=== PATIENT | female | born 1965 | race Caucasian/White ===

== ENCOUNTER 2018-10-27 13:54 | Inpatient (IN) ==
[2018-10-27 15:03] LABS: BASO# 0.03 X1000 (0.0-0.2); BASO% 0.3 % (0.0-0.8); EOS# 0.06 X1000 (0.0-0.7); EOS% 0.7 % (0.0-10.0); HEMATOCRIT 44.2 % (37.0-47.0); HEMOGLOBIN 14.9 g/dL (12.0-16.0); IMM GRAN# 0.03 X1000 (0.0-0.04); IMM GRAN% 0.3 % (0.0-0.5); LYMPH# 2.12 X1000 (1.2-3.4); LYMPH% 23.8 % (20.5-51.1); MCH 30.5 PG (27-31); MCHC 33.7 g/dL (33-37); MCV 90.4 FL (81-99); MONO% 4.5 % (1.7-9.3); MPV 11.3 FL (7.4-10.4); NEUT# 6.26 X1000 (1.4-6.5); NEUT% 70.4 % (42.2-75.2); PLT 282 X1000 (130-400); RBC 4.89 XMIL (4.2-5.4); RDW 12.1 % (11.5-14.5)
[2018-10-27 15:08] LABS: INR 0.96; PROTIME 13.5 Seconds (11.0-16.0)
[2018-10-27 15:09] LABS: PTT 30.3 Seconds (22.3-41.8)
--- NOTE | 2018-10-27 15:17 | Diag Imaging Result Doc PS360 ---
EXAM: MRI C-SPINE W/WO CONTRAST 10/27/2018 HISTORY: paraparesis, neck pain, incontinence TECHNIQUE: T1-T2 and STIR sagittal, T1 and T2 axial, post gadolinium T1-weighted axial and sagittal fat sat. COMMENT: There is motion artifact. There is no definite evidence of an intramedullary mass or signal abnormality. Some flow artifacts are demonstrated in the CSF on the STIR images. No evidence of abnormal gadolinium enhancement is present. At the C1-2 level there is no spinal or foraminal stenosis. At C2-3 there is no evidence of spinal or foraminal stenosis. At C3-4 there is no spinal or foraminal stenosis. At C4-5 there is no evidence of spinal or foraminal stenosis. At C5-6 there is posterior osteophyte formation with mild spinal stenosis and left-sided foraminal narrowing. At C6-7 there is some osteophyte formation which is most appreciable on the right side narrowing the lateral recess. The foramina appear to be patent bilaterally. At C7-T1 there is no evidence of spinal or foraminal stenosis. IMPRESSION: Degenerative disc disease at C5-6 with spinal and left foraminal stenosis. Electronically signed by Barry Collins 10/27/2018 3:15 PM
[2018-10-27 15:25] LABS: AGAP 13; ALB/GLOB RATIO 1.3; ALKALINE PHOSPHATASE 66 U/L (32-104); BUN 10 mg/dL (8-22); CALCIUM 9.7 mg/dL (8.8-10.2); CHLORIDE 103 mmol/L (98-107); COSMO 278; CREATININE 0.5 mg/dL (0.5-0.9); ESTIMATED GFR > 60; GLUCOSE 88 mg/dL (70-104); GOT 11 U/L (10-30); GPT 7 U/L (10-36); POTASSIUM 3.9 mmol/L (3.5-5.1); SODIUM 140 mmol/L (136-145); TCO2 24 mmol/L (25-35); TOTAL BILIRUBIN 0.33 mg/dL (0.20-1.00); TOTAL PROTEIN 7.1 g/dL (6.3-8.3)
[2018-10-27 16:07] LABS: SED RATE 23 mm/hr (0-20)
--- NOTE | 2018-10-27 16:50 | Diag Imaging Result Doc PS360 ---
EXAM: MRI THORACIC SPINE W/CONTRAST 10/27/2018 HISTORY: paraparesis, incontinence TECHNIQUE: T1, T2, STIR sagittal, axial T1 and T2. COMMENT: As contrast was administered for the previously performed study of the cervical spine, there is some gadolinium present on this study. There is no evidence of intramedullary mass or intrathecal mass. There is a small syrinx present at the upper level of T7 but not on subsequent or prior axial slices. There is increased signal intensity on both the T1 and T2 weighted images and T4 which is presumably due to a hemangioma. Otherwise there is no significant signal abnormality in the thoracic spine. There is no evidence of spinal stenosis. There is no evidence of abnormal enhancement. IMPRESSION: Questionable minimal syrinx as described. Otherwise no evidence of acute disease. Electronically signed by Barry Collins 10/27/2018 4:48 PM
--- NOTE | 2018-10-27 16:53 | Diag Imaging Result Doc PS360 ---
EXAM: MRI LUMBAR SPINE W/CONTRAST 10/27/2018 HISTORY: paraparesis, incontinence TECHNIQUE: T1-T2 and STIR sagittal, T1 and T2 axial COMMENT: There is a well-circumscribed lesion in L3 demonstrate increased signal intensity on both T1 and T2-weighted images which presumably is a hemangioma. There is no evidence of spinal stenosis or intrathecal mass. There is no evidence of bone marrow edema. At the T12-L1 level, there is no evidence of spinal or foraminal stenosis. There is a cyst in the left kidney. At the L1-2 level there is no spinal or foraminal stenosis. At the L2-3 level there is no spinal or foraminal stenosis. At the L3-4 level there is no spinal or foraminal stenosis. There is some hypertrophic change in the ligamenta flava bilaterally. At the L4-5 level there is disc space narrowing desiccation and some Modic type II change in the adjoining endplates. There is disc bulge. There is no evidence of spinal or foraminal stenosis. At the L5-S1 level there is no evidence of significant spinal or foraminal stenosis. IMPRESSION: Degenerative disc disease at L4-5. Electronically signed by Barry Collins 10/27/2018 4:50 PM
--- NOTE | 2018-10-27 18:43 | PROVIDER DOCUMENTATION ---
This chart was entered by Julee Emery Scribe, acting as scribe for Stiven Klein MD. HPI-General Adult - General Chief Complaint: Numbness Stated Complaint: NUMBNESS Time Seen by Provider: 10/27/18 14:05 Source: patient, family Unable to obtain history due to:: other (pt is poor historian) Allergies/Adverse Reactions: Patient Allergies Allergy/AdvReac Type Severity Reaction Status Date / Time No Known Allergies Allergy Verified 09/07/18 22:15 Home Medications: Home Medication List Medication Instructions Recorded Confirmed Last Taken Type Levothyroxine [Synthroid] 25 microgm PO DAILY 12/14/14 10/27/18 10/24/18 History Doxepin HCl 75 mg PO QHS 12/15/14 10/27/18 10/24/18 History Ergocalciferol (Vitamin D2) 50,000 unit PO Q7D 12/15/14 10/27/18 10/24/18 History [Vitamin D] Escitalopram Oxalate [Lexapro] 20 mg PO DAILY 12/15/14 10/27/18 10/24/18 History Hydrocodone/Acetaminophen [Lortab 1 each PO Q6H PRN PRN #12 tablet 01/13/1502/0910/24/18 Rx 10-325 mg Tablet] Omeprazole 20 mg PO DAILY #0 capsule. 01/13/15 10/27/18 10/24/18 Rx - History of Present Illness -Gen Adult Nature of Presenting Problems: 53 yof presents to the ed with c/o numbness from neck down and has been incontinent of urine and bm. has been cleaning and doing care of pt since onset. acute onset 2 weeks prior Location of Pain/Injury: reports: generalized (from neck down) Quality of Pain: reports: other (numbness) Severity: reports: severe Onset/Duration: reports: other (2 weeks) Timing: reports: still present, constant Context/Activities at Onset: reports: light activity Modifying Factors: improves with: nothing Associated Symptoms: reports: genitourinary problems, trouble walking, other ( numbness from neck down). denies: back/neck pain, chest pain, diarrhea, fever/ chills, headaches, weakness Similar Symptoms Previously?: No Recently seen or treated by another doctor?: No Review of Systems - Adult - REVIEW OF SYSTEMS - ADULT ROS:: limited per condition Constitutional: reports: no symptoms reported Eyes: reports: no symptoms reported Ears, Nose, Mouth & Throat: reports: no symptoms reported Cardiovascular: denies: chest pain, palpitations Respiratory: denies: cough, shortness of breath, wheezing Gastrointestinal: denies: abdominal pain, diarrhea, nausea, vomiting Genitourinary: reports: no symptoms reported Musculoskeletal: denies: back pain, neck pain Integumentary: reports: no symptoms reported Neurological: reports: see HPI, numbness. denies: dizziness/vertigo, headache/ migraines, seizure, slurred speech, tremors Psychiatric: reports: no symptoms reported Endocrine: reports: no symptoms reported Hematologic/Lymphatic: reports: no symptoms reported Allergic/Immunologic: reports: no symptoms reported All Other Systems: Reviewed and Negative Past History - Adult - PAST MEDICAL HISTORY-ADULT Review of Records: reports: Old Records Reviewed, Nursing Assessment Review, Medications Reviewed, Social history reviewed & non-contributory. Major Childhood Illnesses: reports: denies history Cardiovascular: reports: HTN Respiratory: reports: denies history Gastrointestinal: reports: denies history Obstetrical/Gynecological: reports: denies history Genitourinary: reports: denies history Musculoskeletal: reports: denies history Neurological: reports: denies history Psychiatric: reports: depression Endocrine/Immune: reports: denies history Other Conditions: reports: denies history - PRIOR SURGERIES/PROCEDURES Surgical/Procedure History: reports: back/neck (sx) - IMMUNIZATION STATUS Childhood Immunizations: See Nurse Assessment Flu Vaccine: See Nurse Assessment - FAMILY HISTORY Family History: reviewed, not pertinent - SOCIAL HISTORY Smoking: cigarettes, greater than 1 pack/day Provider spent 3-5 mins advising pt. on dangers of tobacco.: Discussed manners to quit use, and f/u contacts for add'l counseling. Substance Use: denies Alcohol Use Frequency: never Living Situation: family Physical Exam-General - PHYSICAL EXAM-ADULT Initial Vital Signs Reviewed: Yes - CONSTITUTIONAL General Appearance: alert, no apparent distress - EYES Eyes: PERRL/EOMI, pink conjunctivae - HEAD, EARS, NOSE, MOUTH & THROAT HENMT: moist mucous membranes, normal ENT inspection - NECK Neck: full range of motion, normal inspection - RESPIRATORY Respiratory: chest non-tender, lungs clear, normal breath sounds - CARDIOVASCULAR Cardiovascular: normal peripheral pulses, regular rate, rhythm - GASTROINTESTINAL (ABDOMEN) Abdominal Exam: normal bowel sounds, non tender, soft - GENITOURINARY Female Genitalia/Pelvic Exam: deferred Rectal Exam: decreased tone - LYMPHATIC Lymphatic: no adenopathy - MUSCULOSKELETAL Back Exam: normal inspection Extremity: normal inspection, normal capillary refill, pelvis stable, other ( upward toes). negative: normal range of motion Progress - PLAN OF CARE/RESULTS Progress/Plan/Lab Results: Vital Signs - 8 hr 10/27/18 14:00 Temperature 99.4 F Pulse Rate 84 Respiratory Rate 16 Blood Pressure 150/90 O2 Sat by Pulse Oximetry 98 Orders Category Date Time Status MRI CERVICAL SPINE W/CONTRAST [MRI] Stat Exams 10/27/18 14:25 Ordered CBC WITH DIFF [HEME] Stat Lab 10/27/18 14:24 Uncollected COMPREHENSIVE METABOLIC PANEL [CHEM] Stat Lab 10/27/18 14:24 Uncollected PROTIME WITH INR [COAG] Stat Lab 10/27/18 14:24 Uncollected PTT [COAG] Stat Lab 10/27/18 14:24 Uncollected SED RATE [HEME] Stat Lab 10/27/18 14:25 Uncollected imaging of Cspine w/ josette. as well as subsequent T & L spine fails to reveal anatomic/mechanical explanation for paresis. labs wnl. have discussed w/ Nae who agreed to admit to Hospitalist for further neuro eval; possibility of depression w/ conversion reaction considered based on hx of depression and recent stressors (mother very ill). Result Diagrams: 10/27/18 14:30 10/27/18 14:30 - REASSESSMENT Reassessment #1 Time Reassessed: 14:31 ( at bedside) Status: unchanged Reassessment #2 Time Reassessed: 17:14 Status: unchanged Reassessment Comment: resting in bed - CT/MRI 1 MRI Study: C-Spine (EXAM: MRI C-SPINE W/WO CONTRAST 10/27/2018 HISTORY: paraparesis, neck pain, incontinence TECHNIQUE: T1-T2 and STIR sagittal, T1 and T2 axial, post gadolinium T1-weighted axial and sagittal fat sat. COMMENT : There is motion artifact. There is no definite evidence of an intramedullary mass or signal abnormality. Some flow artifacts are demonstrated in the CSF on the STIR images. No evidence of abnormal gadolinium enhancement is present. At the C1-2 level there is no spinal or foraminal stenosis. At C2-3 there is no evidence of spinal or foraminal stenosis. At C3-4 there is no spinal or foraminal stenosis. At C4-5 there is no evidence of spinal or foraminal stenosis. At C5-6 there is posterior osteophyte formation with mild spinal stenosis and left-sided foraminal narrowing. At C6-7 there is some osteophyte formation which is most appreciable on the right side narrowing the lateral recess. The foramina appear to be patent bilaterally. At C7-T1 there is no evidence of spinal or foraminal stenosis. IMPRESSION: Degenerative disc disease at C5-6 with spinal and left foraminal stenosis. Electronically signed by Barry Collins 10/27/2018 3:15 PM 10/27/18 1515 Interpreting Physician: Barry Collins MD Dictated Date/Time: 10/27/18 4281 cc: Stiven Klein MD; Poppy Deluna), Lumbar Spine (EXAM: MRI LUMBAR SPINE W/ CONTRAST 10/27/2018 HISTORY: paraparesis, incontinence TECHNIQUE: T1-T2 and STIR sagittal, T1 and T2 axial COMMENT: There is a well-circumscribed lesion in L3 demonstrate increased signal intensity on both T1 and T2-weighted images which presumably is a hemangioma. There is no evidence of spinal stenosis or intrathecal mass. There is no evidence of bone marrow edema. At the T12-L1 level, there is no evidence of spinal or foraminal stenosis. There is a cyst in the left kidney. At the L1-2 level there is no spinal or foraminal stenosis. At the L2-3 level there is no spinal or foraminal stenosis. At the L3-4 level there is no spinal or foraminal stenosis. There is some hypertrophic change in the ligamenta flava bilaterally. At the L4-5 level there is disc space narrowing desiccation and some Modic type II change in the adjoining endplates. There is disc bulge. There is no evidence of spinal or foraminal stenosis. At the L5-S1 level there is no evidence of significant spinal or foraminal stenosis. IMPRESSION: Degenerative disc disease at L4-5. Electronically signed by Barry Collins 10/27/2018 4:50 PM 10/27/18 4360 Interpreting Physician: Barry Collins MD Dictated Date/Time: 1648 cc: Stiven Klein MD; Poppy Deluna), Thoracic Spine ( EXAM: MRI THORACIC SPINE W/CONTRAST 10/27/2018 HISTORY: paraparesis, incontinence TECHNIQUE: T1, T2, STIR sagittal, axial T1 and T2. COMMENT: As contrast was administered for the previously performed study of the cervical spine, there is some gadolinium present on this study. There is no evidence of intramedullary mass or intrathecal mass. There is a small syrinx present at the upper level of T7 but not on subsequent or prior axial slices. There is increased signal intensity on both the T1 and T2 weighted images and T4 which is presumably due to a hemangioma. Otherwise there is no significant signal abnormality in the thoracic spine. There is no evidence of spinal stenosis. There is no evidence of abnormal enhancement. IMPRESSION: Questionable minimal syrinx as described. Otherwise no evidence of acute disease. Electronically signed by Barry Collins 10/27/2018 4:48 PM 10/27/188 Interpreting Physician: Barry Collins MD Dictated Date/Time: 10/27/18 1643 cc: Stiven Klein MD; Poppy Deluna) Departure - Departure Date of Disposition Decision: 10/27/18 Time of Disposition Decision: 18:42 DIAGNOSIS: Paraparesis Disposition: ADMITTED INPATIENT 09 Certified Medical Emergency: Emergent Condition: Serious Referrals and Follow-Ups: Poppy Deluna [Primary Care Provider] - - Critical Care Note This patient required my direct & personal management of CC.: Yes Total Time (mins): 38 Critical Care Statement: This patient required my direct personal management to treat or rule out processes, the absence of which, could potentiallly result in sudden, clinically significant life or limb threatening deterioration. Attestation - Physician/ PEDRO Attestation Patient care was provided by Advanced Practice Provider:: No The physician spent face to face time with patient:: Yes Advanced Practice Provider documentation review:: Supervising physician onsite and consulted in the evaluation and care of this patient. The physician did have a face to face encounter with the patient. This chart was documented by the indicated scribe, (Julee Emery Scribe) and accurately reflects the services I performed and decisions made by me, Stiven Klein MD, as attested by the provider's signature.
--- NOTE | 2018-10-27 19:35 | Diag Imaging Result Doc PS360 ---
EXAM: CT HEAD W/O CONTRAST 10/27/2018 HISTORY: weakness TECHNIQUE: This exam was performed using automated exposure control, adjustment of mA or kV according to patient size, and/or use of iterative reconstruction technique. COMMENT: There is no evidence of mass effect, bleed, or abnormal extra-axial fluid collection. There are no previous studies available for comparison. The calvarium is intact. The visualized paranasal sinuses are clear. IMPRESSION: No evidence of acute intracranial disease. Electronically signed by Barry Collins 10/27/2018 7:33 PM
[2018-10-27] MEDS ORDERED: ZOFRAN IV PRN (20:15)
[2018-10-27] MEDS ORDERED: TYLENOL PO PRN (20:15)
[2018-10-27 20:54] LABS: URINE SOURCE CATH
[2018-10-27 21:08] LABS: BILIRUBIN URINE NEGATIVE (NEGATIVE); BLOOD URINE SMALL (NEGATIVE); COLOR ORANGE; GLUCOSE URINE NEGATIVE (NEGATIVE); KETONE URINE 10 mg/dL (NEGATIVE); LEUKOCYTES URINE LARGE (NEGATIVE); NITRITE URINE NEGATIVE (NEGATIVE); PROTEIN URINE TRACE mg/dL (NEGATIVE); SP GRAVITY URINE 1.016; TURBIDITY URINE HAZY (CLEAR); UROBILINOGEN URINE NORMAL (NORMAL)
[2018-10-27 21:10] LABS: UR EPITHELIAL CELLS <10 /HPF (<10); URINE BACTERIA 4+ /HPF; URINE RBC <10 /HPF (<10); URINE WBC TNTC /HPF (<10)
[2018-10-27 21:15] LABS: UR AMPHETAMINES QUAL NONE DETECTED (NONE DETECT); UR BARBITUATES QUAL NONE DETECTED (NONE DETECT); UR BENZODIAZEPIN QUAL NONE DETECTED (NONE DETECT); UR CANNABINOIDS QUAL PRESUMPTIVE POSITIVE (NONE DETECT); UR COCAINE QUAL NONE DETECTED (NONE DETECT); UR METHADONE QUAL NONE DETECTED (NONE DETECT); UR OPIATES QUAL NONE DETECTED (NONE DETECT); UR OXYCODONE QUAL NONE DETECTED (NONE DETECT); UR PCP QUAL NONE DETECTED (NONE DETECT)
--- NOTE | 2018-10-27 21:40 | HISTORY AND PHYSICAL ---
PRIMARY CARE PROVIDER: Dr. Poppy Deluna. CHIEF COMPLAINT: Numbness. HISTORY OF PRESENT ILLNESS: This is a 53-year-old female who presented to the emergency room. She is a very poor historian. She has a past medical history of chronic back and neck pain status post surgery, gastric ulcers, anxiety/depression, hypothyroidism and a large abscess on her posterior portion of her neck which was debrided by Dr. Emery. I believe it was found to be MRSA positive. At any rate, for the last 2 weeks, she has apparently had progressive numbness from the neck down. She has apparently been incontinent of urine and bowels, and her has been caring for her. From what I understand, she has been having a lot of stress at home. Her mother is very ill. Her [id number] . T patient had a CT of the head, lumbar spine MRI and thoracic spine MRI, which were all essentially negative and showed no reason for the paraparesis or incontinence. Laboratory data was completely normal. On my arrival to the room to examine the patient, she stated she was unable to move; however, she was able to move all of her extremities. She was able to sit up in the bed on command and follow all commands. She had no motor or focal deficits, and her deep tendon reflexes and sensory were intact. This appears to be some type of conversion disorder; however, will admit the patient on observation status to monitor overnight with neuro checks, and consult [facility] for tomorrow morning to evaluate the patient. PAST MEDICAL HISTORY: See HPI. PREVIOUS SURGICAL HISTORY: 1. Tubal ligation. 2. Abscess debridement. 3. Neck and back surgery. SOCIAL HISTORY: Smokes a pack a day. Has continued smoking a pack a day despite her present illness. No alcohol or illicit drugs. FAMILY HISTORY: Mother has hypertension and is in bad health. The patient was unable to tell me any other family member comorbidities. As I stated, she is a poor historian. ALLERGIES: No known drug allergies. HOME MEDICATIONS: 1. Doxepin 75 mg p.o. at bedtime. 2. Vitamin D2 50,000 units p.o. every 7 days. 3. Lexapro 10 mg p.o. daily. 4. Shepherd 10, 1 p.o. every 6 hours p.r.n. 5. Synthroid 25 mcg p.o. daily. 6. Omeprazole 20 mg p.o. daily. REVIEW OF SYSTEMS: A 14-point review of systems was conducted with the patient. Pertinent positives as listed above in the HPI. All other systems reviewed and found to be negative PHYSICAL EXAMINATION: VITAL SIGNS: Temperature 97.8, pulse 66, respirations 15, blood pressure 138/72 , oxygen saturation 97% on room air. GENERAL: A 53-year-old female lying on the ER stretcher, somewhat odd or flat affect. She is a poor historian but is alert and oriented x3. Answers all questions appropriately. HEENT: Head is atraumatic, normocephalic. Pupils equal, round, and reactive to light. Extraocular eye movements intact. Sclerae are anicteric. Conjunctivae are pink. Oral mucosa is moist. NECK: Supple. No JVD. No thyromegaly. Trachea is midline. No cervical lymphadenopathy. CARDIAC: S1 and S2 appreciated. No murmurs, gallops or rubs. LUNGS: Clear to auscultation bilaterally. No rhonchi, wheezes or rales. Symmetric rise and fall with respirations. ABDOMEN: Soft, nondistended, nontender. Bowel sounds in all 4 quadrants. Normoactive. No pulsatile mass or organomegaly. EXTREMITIES: No clubbing, cyanosis, or edema. Has 2+ pedal pulses bilaterally. GENITOURINARY: No bladder distention. Exam otherwise deferred. NEUROLOGIC: Alert and oriented x3. Cranial nerves II-XII grossly intact. Deep tendon reflexes are also noted to be intact. No palmar drift. No asymmetry MUSCULOSKELETAL: The patient does move all extremities, 4/5 strength in upper and lower extremities. No pain with movement of passive movement. The patient also states that she has sensation in all areas that are evaluated. DIAGNOSTIC DATA: CT of the head, MRI of the lumbar spine, and MRI of the T- spine are all grossly normal. LABORATORY DATA: CBC, chemistry, and coags within normal limits. Urine and UDS are pending. ASSESSMENT/PLAN: 1. Conversion disorder. This is the most likely diagnosis. The patient has been under a lot of stress at home. She does have a diagnosis of anxiety and depression. She essentially has no problems, but states that she feels numb inside despite being able to feel sensation from the outside. She does continue to state that she is incontinent of urine and stool. Will consult [facility] to evaluate the patient. Will check vitamin B12, vitamin D, and TSH levels. 2. Hypothyroidism. Continue home medication. Check TSH to make sure that her laboratory values are within normal limits. 3. Chronic neck and back pain. Continue Shepherd. 4. Anxiety and depression. Aware. See number 1. 5. History of gastric ulcers. Continue proton pump inhibitor. Further recommendation per patient's clinical course. Dictated by LIZZIE Patel for Chrystal Bryan MD cc: LIZZIE Patel MD Faye Wilson, MD I personally examined this patient. I strongly feel her symptoms do not match her complaints. When patient is distracted, her exam is totally normal. I do feel there is some psychological overlay in this case. It does not help that she has THC + UDS. Her urine is also suggestive for a UTI and will treated as such. Would benefit from psychiatric eval. once cleared. TAYLORD
[2018-10-27 21:44] LABS: VITAMIN D 25 HYDROXY 25.6 NG/DL
[2018-10-27] MEDS: SINEQUAN PO SCH (22:25)
[2018-10-27] MEDS: NORCO-10 PO PRN (22:25)
[2018-10-27] MEDS ORDERED: APRESOLINE IV PRN (23:54)
[2018-10-28] MEDS: PRILOSEC PO SCH (06:32)
[2018-10-28] MEDS: SYNTHROID PO SCH (06:32)
[2018-10-28] MEDS: ROCEPHIN 1 GM in NS 50 ML IV SCH (06:32)
[2018-10-28 07:57] LABS: BASO# 0.04 X1000 (0.0-0.2); BASO% 0.6 % (0.0-0.8); EOS# 0.18 X1000 (0.0-0.7); EOS% 2.5 % (0.0-10.0); HEMATOCRIT 43.6 % (37.0-47.0); HEMOGLOBIN 14.5 g/dL (12.0-16.0); LYMPH# 2.87 X1000 (1.2-3.4); MCH 30.6 PG (27-31); MCHC 33.3 g/dL (33-37); MONO# 0.51 X1000 (0.11-0.59); MONO% 7.1 % (1.7-9.3); NEUT# 3.57 X1000 (1.4-6.5); NEUT% 49.8 % (42.2-75.2); PLT 276 X1000 (130-400); RBC 4.74 XMIL (4.2-5.4); RDW 12.3 % (11.5-14.5); WBC 7.17 X1000 (4.8-10.8)
[2018-10-28 08:30] LABS: AGAP 12; BUN 13 mg/dL (8-22); CALCIUM 10.1 mg/dL (8.8-10.2); CHLORIDE 101 mmol/L (98-107); COSMO 281; CREATININE 0.7 mg/dL (0.5-0.9); ESTIMATED GFR > 60; GLUCOSE 93 mg/dL (70-104); MAGNESIUM 2.1 mg/dL (1.5-2.7); SODIUM 141 mmol/L (136-145); TCO2 28 mmol/L (25-35)
[2018-10-28] MEDS: LEXAPRO PO SCH (09:32)
[2018-10-28] MEDS: NORCO-10 PO PRN ×2 (09:43→16:04)
[2018-10-28] MEDS: NICODERM PATCH TD PRN (12:09)
[2018-10-28] MEDS: KLONOPIN PO PRN ×2 (12:09→20:04)
--- NOTE | 2018-10-28 13:59 | PROGRESS NOTE ---
DATE: 10/28/2018 SUBJECTIVE: Patient notes she still feels numb all over from approximately her mid neck area all the way down. States that she is still very weak, but she has no visible weakness in her upper extremities or lower extremities with movement. Does note that she has been under an intense amount of stress lately. OBJECTIVE: Temperature 98, pulse 61, respiratory 20, BP 157/84. General: Patient is awake, alert. She is currently in no respiratory distress. HEENT: Normocephalic. Neck: Supple. CARDIOVASCULAR: Regular rate. No murmurs. Chest clear and unlabored. Abdomen is soft, nondistended, nontender. Extremities: She moves all extremities well. She has no focal weakness appreciable. ASSESSMENT: 1. Acute stress reaction with conversion disorder. 2. Hypothyroidism. 3. Chronic neck and back pain. 4. Chronic anxiety/depression. PLAN: The patient currently is on Rocephin for a presumed urinary tract infection. We will continue that currently. Did discuss with Ms. Tubbs that this is most likely due to acute stress reaction. I certainly agree that she should have [facility] consulted. We will continue 3 days of antibiotics. One the cultures are negative, then we will consult [facility]. Her labs currently are negative. CT of the head, MRI of L-spine and C-spine also grossly normal. We will continue to follow. cc: Frandy Solares MD
[2018-10-28] MEDS: SINEQUAN PO SCH (20:04)
[2018-10-29] MEDS: PRILOSEC PO SCH (06:18)
[2018-10-29] MEDS: ROCEPHIN 1 GM in NS 50 ML IV SCH (06:18)
[2018-10-29] MEDS: SYNTHROID PO SCH (06:18)
[2018-10-29] MEDS: NORCO-10 PO PRN ×3 (06:59→19:08)
[2018-10-29] MEDS: LEXAPRO PO SCH (09:23)
[2018-10-29] MEDS: KLONOPIN PO PRN ×2 (09:29→19:08)
[2018-10-29] MEDS: NICODERM PATCH TD PRN (09:33)
[2018-10-29] MEDS: SINEQUAN PO SCH (20:00)
--- NOTE | 2018-10-29 20:50 | PROGRESS NOTE ---
DATE: 10/29/2018 INTERVAL HISTORY: Patient still with inconsistent complaints of varying numbness and weakness. Moves all extremities with good strength when distracted and maneuvers herself around bed without apparent difficulty. Appears anxious at times and repeatedly mentions that she has been under a significant amount of stress lately. Awaiting evaluation by [facility]. States that she was admitted there several years before when she "had a nervous breakdown." No new complaints. No acute events overnight next. VITALS: T-max 98.2, pulse 77, respirations 16, blood pressure 136/90, O2 saturation 95% on room air. PHYSICAL EXAMINATION: General: No acute distress, though slightly anxious-appearing. Vitals: As above. HEENT: Normocephalic, atraumatic. No cervical adenopathy. Cardiovascular: Regular rate and rhythm. No murmurs noted. Pulmonary: Clear to auscultation bilaterally. No wheezing, rales or rhonchi noted. Abdomen: Soft, nontender, nondistended. Bowel sounds positive. Extremities: Peripheral pulses intact. No clubbing, cyanosis or edema. Neurologic: Cranial nerves 2-12 grossly intact. Effort with strength exam somewhat variable, but with repeated examination and distraction as well as observing her at rest her strength appears to be full. Reflexes 2+. Psychiatric: Odd affect, anxious and possibly depressed mood. Awake, alert, oriented x 3. Skin: No new rashes or lesions noted. ASSESSMENT AND PLAN: 1. Acute stress reaction with conversion disorder. Awaiting evaluation by [facility] for possible inpatient admission. Continue home psychiatric medications for now. 2. Hypothyroidism. Continue home Synthroid. TSH within normal limits. 3. Chronic pain. Continue home pain medicine. 4. Anxiety and depression. Continue home medications as above. 5. Urinary tract infection. Urine culture growing out gram-negative rods. No leukocytosis. No fevers. No tachycardia. No signs of sepsis. On empiric therapy with Rocephin. If accepted to [facility], can likely be discharged on a short course of Omnicef. 6. DVT prophylaxis. SCDs.
[2018-10-30] MEDS: NORCO-10 PO PRN ×4 (01:09→19:00)
[2018-10-30] MEDS: ROCEPHIN 1 GM in NS 50 ML IV SCH (06:36)
[2018-10-30] MEDS: PRILOSEC PO SCH (06:36)
[2018-10-30] MEDS: SYNTHROID PO SCH (06:36)
[2018-10-30] MEDS: NICODERM PATCH TD PRN (09:03)
[2018-10-30] MEDS: KLONOPIN PO PRN ×2 (09:03→20:42)
[2018-10-30] MEDS: LEXAPRO PO SCH (09:04)
--- NOTE | 2018-10-30 12:56 | PROGRESS NOTE ---
DATE: 10/30/2018 SUBJECTIVE: The patient complains of weakness in the extremities. OBJECTIVE: Vital Signs: Temperature 97.4 degrees, pulse 67, blood pressure 143/87, respiratory rate 16, oxygen saturation 97%. HEENT: Atraumatic, normocephalic. Cardiovascular: S1, S2. Respiratory: Has evidence of good air entry bilaterally. Abdomen: Soft, nontender. No masses felt. Extremities: No evidence of edema. Central nervous system: Patient does have decreased strength in all of the extremities. LABORATORIES: Urine culture positive for Proteus mirabilis. ASSESSMENT AND PLAN: 1. Urinary tract infection secondary to Proteus mirabilis. Continue antibiotics. 2. Hypothyroidism. Continue Synthroid. 3. Anxiety with depression. Continue appropriate psychiatric medications. 4. Acute stress reaction with convulsions. Awaiting evaluation by Yumi Delgado for possible inpatient admission. 5. Deep vein thrombosis prophylaxis. SCDs. cc: Titus Esposito MD
[2018-10-30] MEDS: SINEQUAN PO SCH (20:42)
[2018-10-31] MEDS: ROCEPHIN 1 GM in NS 50 ML IV SCH (05:28)
[2018-10-31] MEDS: NORCO-10 PO PRN ×3 (05:28→18:14)
[2018-10-31] MEDS: PRILOSEC PO SCH (06:15)
[2018-10-31] MEDS: SYNTHROID PO SCH (06:16)
[2018-10-31 07:33] LABS: HEMATOCRIT 43.1 % (37.0-47.0); HEMOGLOBIN 14.4 g/dL (12.0-16.0); MCH 31.3 PG (27-31); MCHC 33.4 g/dL (33-37); MCV 93.7 FL (81-99); MPV 10.9 FL (7.4-10.4); RBC 4.6 XMIL (4.2-5.4); RDW 12.1 % (11.5-14.5); WBC 5.87 X1000 (4.8-10.8)
[2018-10-31 07:45] LABS: AGAP 10; ALB/GLOB RATIO 1.4; ALBUMIN 3.8 g/dL (3.5-5.0); ALKALINE PHOSPHATASE 60 U/L (32-104); BUN 13 mg/dL (8-22); CALCIUM 9.8 mg/dL (8.8-10.2); CHLORIDE 102 mmol/L (98-107); COSMO 281; CREATININE 0.7 mg/dL (0.5-0.9); ESTIMATED GFR > 60; GLUCOSE 87 mg/dL (70-104); GOT 15 U/L (10-30); GPT 13 U/L (10-36); POTASSIUM 4.2 mmol/L (3.5-5.1); SODIUM 141 mmol/L (136-145); TCO2 29 mmol/L (25-35); TOTAL BILIRUBIN 0.27 mg/dL (0.20-1.00); TOTAL PROTEIN 6.5 g/dL (6.3-8.3)
[2018-10-31] MEDS: KLONOPIN PO PRN ×2 (08:42→20:39)
[2018-10-31] MEDS: LEXAPRO PO SCH (08:42)
[2018-10-31] MEDS ORDERED: VITAMIN D PO SCH (09:00)
--- NOTE | 2018-10-31 19:30 | PROGRESS NOTE ---
DATE: 10/31/2018 SUBJECTIVE: The patient is resting comfortably in bed. She has no complaints. OBJECTIVE: Vital Signs: Temperature 97.8 degrees, blood pressure 133/86, heart rate 82, respirations 16, oxygen saturation 95% on 2 L nasal cannula. General: This is an elderly female, lying in bed, in no acute distress. Heart: S1, S2 normal. Regular rate and rhythm. Lungs: Clear to auscultation bilaterally. Abdomen: Positive bowel sounds. Soft, nontender, nondistended. Extremities: No edema. No cyanosis. Neurologic: The patient is alert and oriented. LABS: Reviewed. ASSESSMENT AND PLAN: 1. Urinary tract infection secondary to Proteus. Continue with antibiotic therapy. 2. Hypothyroidism. Continue on Synthroid. 3. Conversion disorder. Aware. 4. Chronic neck and back pain. Aware. 5. Anxiety disorder. Continue on Klonopin. 6. Hypothyroidism. Continue on Synthroid. 7. Disposition. Renal Dialysis Rn is working on inpatient rehab placement for the patient. cc: Anna Vera MD
[2018-10-31] MEDS: SINEQUAN PO SCH (20:39)
[2018-11-01] MEDS: ROCEPHIN 1 GM in NS 50 ML IV SCH (05:09)
[2018-11-01] MEDS: SYNTHROID PO SCH (06:25)
[2018-11-01] MEDS: PRILOSEC PO SCH (06:25)
[2018-11-01 07:46] LABS: BASO# 0.03 X1000 (0.0-0.2); BASO% 0.5 % (0.0-0.8); EOS# 0.15 X1000 (0.0-0.7); EOS% 2.5 % (0.0-10.0); HEMATOCRIT 41.1 % (37.0-47.0); HEMOGLOBIN 13.6 g/dL (12.0-16.0); IMM GRAN# 0.02 X1000 (0.0-0.04); IMM GRAN% 0.3 % (0.0-0.5); LYMPH# 2.17 X1000 (1.2-3.4); LYMPH% 36.6 % (20.5-51.1); MCH 30.5 PG (27-31); MCHC 33.1 g/dL (33-37); MCV 92.2 FL (81-99); MONO# 0.47 X1000 (0.11-0.59); MONO% 7.9 % (1.7-9.3); MPV 10.8 FL (7.4-10.4); NEUT# 3.09 X1000 (1.4-6.5); NEUT% 52.2 % (42.2-75.2); PLT 238 X1000 (130-400); RBC 4.46 XMIL (4.2-5.4); RDW 11.9 % (11.5-14.5); WBC 5.93 X1000 (4.8-10.8)
[2018-11-01 08:02] LABS: AGAP 9; BUN 14 mg/dL (8-22); CALCIUM 9.6 mg/dL (8.8-10.2); CHLORIDE 104 mmol/L (98-107); COSMO 283; CREATININE 0.6 mg/dL (0.5-0.9); ESTIMATED GFR > 60; GLUCOSE 91 mg/dL (70-104); POTASSIUM 3.8 mmol/L (3.5-5.1); SODIUM 142 mmol/L (136-145); TCO2 29 mmol/L (25-35)
[2018-11-01] MEDS: LEXAPRO PO SCH (08:29)
[2018-11-01] MEDS: NORCO-10 PO PRN ×3 (09:50→22:57)
--- NOTE | 2018-11-01 11:13 | PROGRESS NOTE ---
DATE: 11/01/2018 SUBJECTIVE: The patient is resting comfortably in bed eating breakfast. No acute events noted overnight. OBJECTIVE: Vital Signs: Temperature 97.4 degrees, blood pressure 154/91, heart rate 63, respirations 15, O2 saturations 99% on room air. General: This is a chronically ill-appearing elderly female sitting up in bed in no acute distress. Heart: S1, S2. Normal. Lungs: Equal air entry bilaterally. No crackles. No rales. Abdomen: Positive bowel sounds. Soft, nontender, nondistended. Extremities: No edema. No cyanosis. Neurologic: The patient is alert and oriented x3. LABORATORIES: Reviewed and within normal limits. ASSESSMENT AND PLAN: 1. Acute stress reaction with conversion disorder. The patient will likely need Psychiatric follow-up. 2. Urinary tract infection secondary to Proteus. Continue with antibiotic therapy. 3. Anxiety disorder. Continue on Klonopin. 4. Hypertension. Stable. 5. Hypothyroidism. Continue on Synthroid. 6. Vitamin D deficiency. Continue with vitamin D replacement. 7. Gastroesophageal reflux disease. Continue on omeprazole. 8. Deep vein thrombosis prophylaxis. We will start the patient on Lovenox. cc: Anna Vera MD
[2018-11-01] MEDS: KLONOPIN PO PRN ×2 (12:35→21:44)
[2018-11-01] MEDS: LOVENOX SUBQ SCH (12:36)
[2018-11-01] MEDS: SINEQUAN PO SCH (21:33)
[2018-11-02] MEDS: NORCO-10 PO PRN ×2 (05:29→15:26)
[2018-11-02] MEDS: ROCEPHIN 1 GM in NS 50 ML IV SCH (05:30)
[2018-11-02] MEDS: PRILOSEC PO SCH (06:00)
[2018-11-02] MEDS: SYNTHROID PO SCH (06:00)
[2018-11-02 07:40] LABS: BASO# 0.03 X1000 (0.0-0.2); BASO% 0.6 % (0.0-0.8); EOS# 0.13 X1000 (0.0-0.7); EOS% 2.4 % (0.0-10.0); HEMATOCRIT 39.5 % (37.0-47.0); HEMOGLOBIN 13.1 g/dL (12.0-16.0); LYMPH# 2.44 X1000 (1.2-3.4); LYMPH% 45.1 % (20.5-51.1); MCH 30.8 PG (27-31); MCHC 33.2 g/dL (33-37); MCV 92.7 FL (81-99); MONO# 0.46 X1000 (0.11-0.59); MONO% 8.5 % (1.7-9.3); MPV 10.9 FL (7.4-10.4); NEUT# 2.35 X1000 (1.4-6.5); NEUT% 43.4 % (42.2-75.2); PLT 238 X1000 (130-400); RBC 4.26 XMIL (4.2-5.4); RDW 11.7 % (11.5-14.5); WBC 5.41 X1000 (4.8-10.8)
[2018-11-02 07:51] LABS: AGAP 10; BUN 15 mg/dL (8-22); CALCIUM 9.4 mg/dL (8.8-10.2); CHLORIDE 102 mmol/L (98-107); COSMO 281; CREATININE 0.6 mg/dL (0.5-0.9); ESTIMATED GFR > 60; GLUCOSE 86 mg/dL (70-104); POTASSIUM 4.1 mmol/L (3.5-5.1); SODIUM 141 mmol/L (136-145); TCO2 29 mmol/L (25-35)
[2018-11-02] MEDS: LEXAPRO PO SCH (08:21)
[2018-11-02] MEDS: KLONOPIN PO PRN ×2 (10:31→20:46)
[2018-11-02] MEDS: LOVENOX SUBQ SCH (11:40)
--- NOTE | 2018-11-02 13:44 | PROGRESS NOTE ---
DATE: 11/02/2018 SUBJECTIVE: The patient is resting comfortably in bed. No acute events noted overnight. OBJECTIVE: Vital Signs: Temperature 97.4 degrees, blood pressure 180/85, heart rate 82, respirations 18, and O2 saturation 97% on 2 L nasal cannula. General: This is a chronically ill- appearing elderly female lying in bed in no acute distress. Heart: S1, S2 normal. Regular rate and rhythm. Lungs: Clear to auscultation bilaterally. Abdomen: Positive bowel sounds. Soft, nontender, and nondistended. Extremities: No edema. No cyanosis. Neurologic : The patient is alert and oriented x3. LABORATORY: Reviewed and within normal limits. ASSESSMENT AND PLAN: 1. Acute stress reaction with conversion disorder. Aware. The patient will need psychiatric follow-up. 2. Urinary tract infection secondary to Proteus. We will repeat the urinalysis today. The patient is currently on Rocephin. 3. Vitamin D deficiency. Continue on vitamin D replacement. 4. Depression. Continue on Lexapro. 5. Tobacco dependence. Continue on the NicoDerm patch. 6. Hypothyroidism. Continue on Synthroid. 7. Hypertension. We will start the patient on Norvasc. 8. Deep vein thrombosis prophylaxis. Continue on Lovenox. 9. Disposition. Import Customer Service Manager is working on inpatient rehab placement for the patient. cc: Anna Vera MD MTDD
[2018-11-02] MEDS: SINEQUAN PO SCH (20:45)
[2018-11-03] MEDS: ROCEPHIN 1 GM in NS 50 ML IV SCH (07:10)
[2018-11-03] MEDS: SYNTHROID PO SCH (07:10)
[2018-11-03] MEDS: PRILOSEC PO SCH (07:10)
[2018-11-03] MEDS: LEXAPRO PO SCH (08:28)
[2018-11-03] MEDS ORDERED: NORVASC PO SCH (09:00)
--- NOTE | 2018-11-03 11:21 | PROGRESS NOTE ---
DATE: 11/03/2018 SUBJECTIVE: The patient is resting comfortably in bed. She states that she still cannot walk. Physical therapy has been working with her and put her in the chair yesterday. OBJECTIVE: Vital Signs: Temperature 97.5, blood pressure 130/91, heart rate 66, respirations 18, O2 saturation 99% on 2 L nasal cannula. General: This is an elderly female lying in bed in no acute distress. Heart: S1, S2 normal. Regular rate and rhythm. Lungs clear to auscultation bilaterally. No wheezing. No rales. No rhonchi. Abdomen: Positive bowel sounds. Soft, nontender, nondistended. Extremities: No edema. No cyanosis. Neurologic: The patient is alert and oriented x3. No focal neurologic deficits noted. LABORATORY DATA: None. ASSESSMENT AND PLAN: 1. Conversion disorder, aware. The patient will need psychiatric followup once she has been discharged from inpatient rehab. 2. Urinary tract infection secondary to Proteus. The patient is on Rocephin. Will repeat a urinalysis today. 3. Hypertension. Continue on Norvasc. 4. Hypothyroidism. Continue on Synthroid. 5. Vitamin D deficiency. Continue with vitamin D replacement. 6. Anxiety disorder. Continue on Klonopin. 7. Gastroesophageal reflux disease. Continue on Prilosec. DISPOSITION: [employer] is working on inpatient rehabilitation placement for the patient. cc: Anna Vera MD
[2018-11-03] MEDS: NORCO-10 PO PRN (11:54)
[2018-11-03] MEDS: LOVENOX SUBQ SCH (12:37)
[2018-11-03] MEDS: KLONOPIN PO PRN (15:14)
--- NOTE | 2018-11-03 15:52 | DISCHARGE SUMMARY ---
ADMISSION DATE: 10/27/2018 DISCHARGE DATE: 11/03/2018 PRIMARY CARE PHYSICIAN: Dr. Poppy Deluna. FINAL DISCHARGE DIAGNOSES: 1. Conversion disorder. 2. Acute stress disorder. 3. Urinary tract infection secondary to Proteus. 4. Hypertension. 5. Hypothyroidism. 6. Vitamin D deficiency. 7. Anxiety disorder. 8. Gastroesophageal reflux disease. HOSPITAL COURSE: Ms. Tubbs is a 53-year-old female with a history of conversion disorder, anxiety disorder, hypothyroidism, and vitamin D deficiency, who presented to the ER with a chief complaint of generalized weakness. The patient stated that she was under a lot of stress at home and just recently had a relative that . Upon arrival to the ER, the patient stated that she could not walk or bear weight. On admission, a head CT was done that did not reveal any acute findings. The patient also had an MRI of the C-spine, lumbar spine and T-spine, all of which were virtually unremarkable. The patient was admitted for further treatment and evaluation. A urinalysis was done and a urine culture was obtained and the patient was started on IV antibiotic therapy. The urine culture ultimately grew out Proteus. The patient was treated with Rocephin for a total of 7 days, and then the antibiotic therapy was discontinued. The patient's drug tox screen was noted to be positive for cannabinoids. Physical therapy was consulted to work with the patient, and she was not really able to participate very much. The patient's case was discussed with [facility], who declined to accept the patient. Legal Financial Specialist was consulted for inpatient rehab to work on the patient's mobility. On 11/03/2018, the patient was accepted for admission to [facility] rehab in [place]. The patient is medically stable for transfer to inpatient rehab. DISCHARGE MEDICATIONS: 1. Wheelwright 10/325 one tab oral every 6 hours p.r.n. for pain. 2. Norvasc 5 mg p.o. twice a day. 3. Synthroid 25 mcg oral daily. 4. Lexapro 20 mg p.o. daily. 5. Doxepin 75 mg p.o. at bedtime. 6. Vitamin D 2 50,000 units oral every 7 days. 7. Omeprazole 20 mg p.o. daily. 8. Klonopin 1 mg p.o. twice a day. DISCHARGE DIET: Low-sodium diet. ACTIVITY: As tolerated. FOLLOWUP INSTRUCTIONS: The patient will need to follow up with Dr. Poppy Deluna upon discharge from the inpatient [facility] Center in [place]. cc: MD Poppy Higuera MD
[2018-11-03 18:07] VITALS: BP 138/95
== END 2018-11-03 18:27 | DRG 880 ==
LOC: SUPCPDRO → ED 13:54 → 3N 21:17 → SUATTDRO 21:17
PROVIDERS: ATTEND Internal Medicine
CPT/HCPCS: 70450; 72147; 72149; 72156; 80048; 80053; 80101; 80301; 80307; 80324; 80345; 80346; 80353; 80358; 80361; 80365; 81001; 82306; 82607; 82746; 82948; 83735; 83992; 84443; 85025; 85027; 85610; 85651; 85730; 86140; 87077; 87088; 87186; 97110; 97162; 97530; 99285; A9270; A9579; G0431; G0434; G0479; G0480; J0696; J1650; XXXXX